=== PATIENT | male | born 1985 | race Two or more races ===

== ENCOUNTER → 2016-06-09 | Outpatient (CLI) | payer OTHER ==
--- NOTE | 2016-06-09 16:43 | DX ---
Right Ankle Series, 3 Views History: Right ankle pain and swelling in a 31-year-old male; no report of recent specific trauma. Findings: A fracture or other acute osseous abnormality is not identified. The bone alignment is norm al. The ankle mortise has a normal contour. There is a benign-appearing bone island in the medial asp ect of the talus. Soft tissue swelling is seen more pronounced medially. No radiopaque foreign body i s identified. Impression: Negative for fracture. Conservative management and follow-up radiography suggested in 7-1 0 days if symptoms persist. Results discussed with Dr. Diaz from A preliminary report was called to [facility].
== END ==
LOC: BMCIMAGING 16:09
PROVIDERS: ATTEND Family Medicine
DX: M25.571 Pain in right ankle and joints of right foot (principal)

== ENCOUNTER → 2018-03-24 | Day surgery (SDC) | payer OTHER ==
[~2018-03-24] MED LIST: DEPO METHYLPREDNISOLONE 40 MG/ML SDV ONE; DEPO METHYLPREDNISOLONE 80 MG/ML SDV ONE; LIDOCAINE 1% 300 MG/30 ML SDV ONE; ROPIVACAINE HCL 150 MG/30 ML INJ ONE
== END | disposition home or self-care (01) ==
LOC: FIMAGING 10:53
PROVIDERS: ATTEND Internal Medicine Rheumatology
DX: M46.1 Sacroiliitis, not elsewhere classified (principal); E55.9 Vitamin D deficiency, unspecified
CPT/HCPCS: J1030; J1040; J2795